=== PATIENT | female | born 1960 | race Caucasian/White ===

== ENCOUNTER 2017-05-09 09:24 | Inpatient (IN) | payer BC ==
[2017-04-18 13:59] VITALS: BMI 35.0
--- NOTE | 2017-04-18 14:26 | PAT Medication Instructions ---
Service Date Apr 18, 2017. Current Home Medication List [Detrol], 1 TAB PO QPM Medication Instructions For Your Scheduled Surgery - Take the following medications as scheduled the night before surgery: [Detrol], 1 TAB PO QPM If you have any questions please call us at [phone] or [phone] or [phone]
--- NOTE | 2017-04-18 15:07 | DIAGNOSTIC IMAGING REPORT ---
CHEST 2 VIEWS ROUTINE CLINICAL HISTORY: 56 years-old Female presenting with preoperative assessment. TECHNIQUE: PA and lateral views of the chest were obtained. COMPARISON: None. FINDINGS: Cardiomediastinal silhouette normal. Lungs and pleural spaces clear. Osseous structures normal. Upper abdomen normal. IMPRESSION: 1. No acute cardiopulmonary disease. Electronically signed by: Edis August M.D. 04/18/2017 3:05 PM Dictated Date/Time: 04/18/2017 3:05 PM
[2017-04-18 15:30] LABS: BASO % 0.5 %; BASO ABS # 0.02 K/uL (0-0.2); EOS % 2.3 %; HEMATOCRIT 41.4 % (37-47); HEMOGLOBIN 14.1 g/dL (12.0-16.0); LYMPH % 36.5 %; LYMPH ABS # 1.58 K/uL (1.2-3.4); MEAN CELL VOLUME 92.4 fL (80-100); MEAN CORPUSCULAR HEMOGLOBIN 31.5 pg (25-34); MEAN CORPUSCULAR HGB CONC 34.1 g/dl (32-36); MEAN PLATELET VOLUME 9.1 fL (7.4-10.4); MONO % 6.7 %; MONO ABS # 0.29 K/uL (0.11-0.59); NEUT ABS # 2.34 K/uL (1.4-6.5); PLATELET COUNT 244 K/uL (130-400); RED CELL DISTRIBUTION WIDTH CV 12.6 % (11.5-14.5); RED CELL DISTRIBUTION WIDTH SD 42.7 fL (36.4-46.3); WHITE BLOOD COUNT 4.33 K/uL (4.8-10.8)
[2017-04-18 15:39] LABS: INR 0.9 (0.9-1.1); PTT PATIENT 27.5 SECONDS (21.0-31.0)
[2017-04-19 06:40] LABS: HEMOGLOBIN A1C 5.3 % (4.5-5.6)
--- NOTE | 2017-05-02 16:52 | HISTORY & PHYSICAL EXAMINATION ---
DATE OF ADMISSION: 05/09/2017 CHIEF COMPLAINT: Right knee pain. HISTORY OF PRESENT ILLNESS: Debby is a 56-year-old female with an 8-year history of right knee pain. The patient rates her pain at 6/10. She has pain with her daily activities. She has limited standing and walking tolerance. Pain is worse with weightbearing. The patient has had injections, home exercise program, and NSAIDS over the years without relief. She has failed conservative treatment and is now scheduled to proceed with right knee replacement. PAST MEDICAL HISTORY: Hypercholesterolemia. She denies heart disease, diabetes or DVT. PAST SURGICAL HISTORY: Bilateral CMC replacement, inguinal hernia repair, tonsillectomy and wisdom teeth extraction. SOCIAL HISTORY: The patient drinks 10 drinks per month. She denies tobacco use. She lives in a 2-story home with her and currently works as a ceo & co founder. FAMILY HISTORY: Negative for DVT. MEDICATIONS: Oxybutynin 10 mg. ALLERGIES: QUESTIONABLE LATEX, otherwise no drug allergies. REVIEW OF SYSTEMS: See HPI. Ten other systems reviewed, all negative. PHYSICAL EXAMINATION: VITAL SIGNS: Height 4 feet 11 inches, weight 176 pounds, and BMI 36. GENERAL: This is a well-developed and well-nourished female, who is alert and oriented x3. Mood and affect are appropriate. HEENT: Normocephalic and atraumatic. Mucous membranes are moist and intact. NECK: Supple without lymphadenopathy. HEART: Regular rate and rhythm without murmurs, rubs or gallops. LUNGS: Clear to auscultation without wheezes or rhonchi. ABDOMEN: Soft and nontender. Bowel sounds are equal and active. EXTREMITIES: No ecchymosis, redness or warmth. She has varus deformity. Range of motion is from 5-110 degrees with +1 laxity. She is neurovascularly intact. X-RAY EXAMINATION: AP and lateral views show joint space narrowing and osteophyte formation. IMPRESSION: Degenerative joint disease, right knee. PLAN: The patient will be admitted for a right total knee arthroplasty. We will plan on aspirin for DVT prophylaxis. The patient will do outpatient physical therapy upon discharge.
[~2017-05-09] VITALS: Ht 149.9 cm; Wt 76.0 kg
[2017-05-09] VITALS (8 sets, daily range): BP systolic 91–140; BP diastolic 67–91; PULSE 71–93; TEMP 36.4–36.8; O2SAT 96–100; Ht 149.9 cm; Wt 76.0 kg
[2017-05-09] MEDS: TRANEXAMIC ACID INJ 1,000 MG x 2 Bags IV SCH ×4 (06:30→11:15)
[~2017-05-09 09:24] MED LIST: ACETAMINOPHEN 500 MG TAB PO SCH; ATROPINE SULFATE 0.1 MG/ML 5ML SYR IV PRN; BUPIVACAINE 0.25% 30 ML VIAL ONE; BUPIVACAINE 0.5 % 5 MG/1 ML PF 10ML VIAL ONE; CEFAZOLIN 1000MG IV PUSH 7.5 ML IV SCH; CeleBREX 200 MG CAP PO SCH; DETROL PO; DEXAMETHASONE 4 MG TAB PO SCH; EpHEDrine SULFATE INJ 50 MG/ML AMP IV PRN; FAMOTIDINE 20 MG TAB PO SCH; FENTANYL CITRATE INJ 50 MCG/1 ML 2 ML VIAL IV PRN; GABAPENTIN 600 MG PO SCH; LACTATED RINGER'S 1000ML 1,000 ML IV SCH; LACTATED RINGER'S 1000ML 500 ML IV SCH; METOCLOPRAMIDE HCL 10 MG TAB PO SCH; ONDANSETRON INJ 2 MG/ML 2 ML VIAL IV PRN; ROPIVACAINE 5MG/ML 30 ML 150 MG, BUPIVACAINE 0.5% MPF INJ 30 ML, EpINEphrine HCL INJ 0.... INFIL SCH
--- NOTE | 2017-05-09 10:31 | History & Physical Bridge Note ---
H&P Re-Evaluation Bridge Note: I have examined the patient, reviewed the History & Physical and in the interval since the performance of the History & Physical I have noted the following changes of clinical significance: No changes noted
[2017-05-09] MEDS ORDERED: MIDAZOLAM HCL 1 MG/ML 2ML VIAL ONE ×2 (10:37→11:46)
[2017-05-09] MEDS ORDERED: ORTHO JOINT ANESTHETIC ONE (11:13)
[2017-05-09] MEDS ORDERED: POVIDONE-IODINE OP SOLN 30 ML BTL ONE (11:13)
[2017-05-09] MEDS ORDERED: BACITRACIN 50000 UNIT VIAL ONE (11:13)
--- NOTE | 2017-05-09 12:48 | [facility] Operative Report ---
Operative Report Operative Date May 09, 2017. Pre-Operative Diagnosis Degenerative joint disease, right knee Post-Operative Diagnosis Degenerative joint disease, right knee Procedure(s) Performed Right Total Knee Arthroplasty Cemented utilizing patient matched journey to right total knee arthroplasty size 4 femur 3 tibia 9.[address] Dre Gomez Sod Farmer Surgeon(s) Jer Ayala PA-C Estimated Blood Loss 5cc Findings Patient presents for her end-stage tract or mild degenerative joint disease no response to conservative therapy varus alignment bone the bone changes subchondral cystic changes marginal osteophytes no response to conservative management Specimens As Per Surgeon A. Right Knee Bone and Tissue Anesthesia Type MAC Spinal Regional Complication(s) none Disposition Recovery Room / PACU Indications Patient presents with severe end-stage rectum or mild degenerative joint disease no response to conservative therapy including physical therapy anti- inflammatories relative rest activity modification plans for total knee orthoplasty postoperative pain as DVT prophylaxis Description of Procedure After proper prepping and draping of the Right lower extremity anterior midline incision was made over the region of the extensor extensor mechanism after meticulous hemostasis was obtained and maintained in subcutaneous tissues a medial parapatellar incision was made The patella was subluxed lateralward the medial lateral gutter were cleaned from any hypertrophic synovitis and scar tissue of the distal femoral block was placed and the distal femoral osteotomy cut was made subsequently the chamfers anterior and posterior osteotomy cuts were made utilizing the 4-in-1 block the tibia was subsequently subluxed anteriorward medial and ateral meniscal remnants were excised in their entirety remnants of the anterior and posterior cruciate ligaments were excised in their entirety excellent exposure of the proximal tibia was obtained the tibial osteotomy guide was placed on the proximal tibial osteotomy cut was made once again the knee was irrigated with copious amounts of sterile saline solution the patella was subsequently everted lateralward thickened scar tissue around the patella was removed the patella was subsequently cut utilizing a freehand technique and was drilled prepared for final preparation and placement of patella socially flexion-extension gaps were checked and the equal and symmetric trials were placed to the appropriate femoral and tibial trials with poly-spacer being placed for equal flexion and extension gaps and full range of motion including extension to 0 and flexion to 140 the trial components after having been taken to recovery range of motion was subsequently removed meticulous hemostasis was obtained and maintained subsequently a knee block injection of joint cocktail including ropivacaine 0.5% 150 mg. Bupivacaine 0.5 % epinephrine 1-200,030 mL's toradol 30 mg dexamethasone 4 mg ketamine 10 mg clonidine 100 micrograms normal saline solution 30 mg was infiltrated into the soft tissues of the posterior knee medial lateral gutters and periosteal synovium special attention was paid to protect neurovascular structures at all times subsequently trial components having been removed the knee was irrigated with sterile saline solution. debris was removed the proximal tibia was subsequently prepared and was made ready for the placement of the tibial component tibial component was also cemented and tamped into position the femoral component was subsequently placed and cemented in the position the patellar component was subsequently cemented in position because hemostasis once again obtained and maintained wound having been thoroughly irrigated with debridement and debridement lavage was performed as well as a medial parapatellar incision closed with #1 Vicryl in interrupted fashion subcutaneous was closed with #2 Vicryl skin was closed with skin clips. PA-C was necessary for prepping and drapping as well as wound closure of deep fascia Sub cutaneous tissue and skin and was necessary for the case. A sterile compressive dressing was placed patient was taken to recovery in stable condition of report dictated by Jason I attest to the content of the Intraoperative Record and any orders documented therein. Any exceptions are noted below. I attest to the content of the Intraoperative Record and any orders documented therein. Any exceptions are noted below.
[2017-05-09] MEDS ORDERED: PROPOFOL IV EMULSION 10 MG/ML 20 ML VIAL IV ONE (12:59)
[2017-05-09] MEDS ORDERED: LIDOCAINE HCL 2% 2 ML VIAL (20MG/ML) ONE (12:59)
[2017-05-09] MEDS ORDERED: ALUMINUM/MAGNESIUM/SIMETH (MAALOX MAX) 30 ML UDC PO PRN (13:30)
[2017-05-09] MEDS ORDERED: OXYCODONE HCL IR 5 MG TAB (IMMEDIATE RELEASE) PO PRN (13:30)
[2017-05-09] MEDS ORDERED: ONDANSETRON INJ 2 MG/ML 2 ML VIAL IV PRN (13:30)
[2017-05-09] MEDS ORDERED: BISACODYL 10 MG SUPP PR PRN (13:30)
[2017-05-09] MEDS ORDERED: ZOLPIDEM TARTRATE 5 MG TAB PO PRN (13:30)
[2017-05-09] MEDS ORDERED: MAGNESIUM HYDROXIDE SUSP 30 ML UDC PO PRN (13:30)
[2017-05-09] MEDS ORDERED: SOD PHOSPHATE/SOD BIPHOSPHATE ENEMA 132 ML BTL PR PRN (13:30)
[2017-05-09] MEDS ORDERED: MoRPHine SULFATE 2 MG/ML CARP IV PRN ×2 (13:30→13:45)
[2017-05-09] MEDS ORDERED: KETOROLAC TROMETHAMINE 30 MG/ML VIAL IV. PRN (13:30)
[2017-05-09] MEDS ORDERED: MoRPHine SULFATE 4 MG/ML 1 ML CARP\\VIAL IV PRN (13:45)
[2017-05-09] MEDS ORDERED: MoRPHine SULFATE 10 MG/ML CARP/VIAL IV PRN (13:45)
--- NOTE | 2017-05-09 14:01 | DIAGNOSTIC IMAGING REPORT ---
R KNEE 2 VIEWS ROUTINE CLINICAL HISTORY: Postop knee arthroplasty COMPARISON: None. DISCUSSION: There are postsurgical changes of a total right knee arthroplasty and patellar resurfacing. The femoral and tibial components appear well seated. There is aortic the soft tissues consistent with recent surgery. There are overlying surgical drains. IMPRESSION: Postsurgical changes of a total right knee arthroplasty. Electronically signed by: Juan Weston M.D. 05/09/2017 1:59 PM Dictated Date/Time: 05/09/2017 1:59 PM
--- NOTE | 2017-05-09 14:08 | Anesthesiology Progress Note ---
Anesthesia Post Op Note Date & Time May 09, 2017 at 14:08 Vital Signs Pain Intensity: 0 Vital Signs Past 12 Hours Date Time Temp Pulse Resp B/P (MAP) Pulse Ox O2 Delivery O2 Flow Rate FiO2 05/09/17 14:00 65 16 111/72 100 Nasal Cannula 3 05/09/17 13:50 72 14 108/68 100 Oxymask 3 05/09/17 13:40 71 14 109/78 100 Oxymask 3 05/09/17 13:30 74 14 103/74 100 Oxymask 3 05/09/17 13:21 36.3 90 16 119/75 99 Oxymask 5 05/09/17 09:52 36.4 93 16 140/91 100 Room Air Notes Mental Status: alert / awake / arousable, participated in evaluation Pt Amnestic to Procedure: Yes Nausea / Vomiting: adequately controlled Pain: adequately controlled Airway Patency, RR, SpO2: stable & adequate BP & HR: stable & adequate Hydration State: stable & adequate Neuraxial Anesthesia: was administered, sensory block is resolving Anesthetic Complications: no major complications apparent
[2017-05-09 15:30] LABS: CREATININE 0.64 mg/dl (0.60-1.20)
[2017-05-09] MEDS: D5W AND 1/2NSS + 20MEQ KCL 1,000 ML IV SCH (18:35)
[2017-05-09] MEDS: CEFAZOLIN IV 1,000 MG in SYRINGE 0 ML IV SCH (19:40)
[2017-05-09] MEDS: ACETAMINOPHEN 500 MG TAB PO SCH (20:48)
[2017-05-09] MEDS: ASPIRIN 81 MG ECTAB PO SCH (20:48)
[2017-05-09] MEDS: DOCUSATE SODIUM 100 MG CAP PO SCH (20:48)
[2017-05-09] MEDS ORDERED: SENNA 8.6 MG TAB PO SCH (21:00)
[2017-05-10] MEDS: TRAMADOL HCL 50 MG TAB PO PRN ×2 (00:18→09:29)
[2017-05-10 02:47] VITALS: BP 103/67; PULSE 72; TEMP 36.5; O2SAT 97
[2017-05-10] MEDS: D5W AND 1/2NSS + 20MEQ KCL 1,000 ML IV SCH (03:53)
[2017-05-10] MEDS: CEFAZOLIN IV 1,000 MG in SYRINGE 0 ML IV SCH (03:53)
[2017-05-10] MEDS: ACETAMINOPHEN 500 MG TAB PO SCH ×2 (05:44→14:10)
[2017-05-10 05:59] LABS: HEMATOCRIT 34.2 % (37-47); HEMOGLOBIN 11.9 g/dL (12.0-16.0); MEAN CELL VOLUME 90.2 fL (80-100); MEAN CORPUSCULAR HEMOGLOBIN 31.4 pg (25-34); MEAN CORPUSCULAR HGB CONC 34.8 g/dl (32-36); MEAN PLATELET VOLUME 8.9 fL (7.4-10.4); PLATELET COUNT 238 K/uL (130-400); RED CELL DISTRIBUTION WIDTH CV 12.7 % (11.5-14.5); RED CELL DISTRIBUTION WIDTH SD 41.6 fL (36.4-46.3); WHITE BLOOD COUNT 11.15 K/uL (4.8-10.8)
[2017-05-10 06:23] LABS: CALCIUM 8.6 mg/dl (8.5-10.1); CREATININE 0.64 mg/dl (0.60-1.20); POTASSIUM 3.7 mmol/L (3.5-5.1)
[2017-05-10 07:15] VITALS: BP 108/74; PULSE 73; TEMP 36.6; O2SAT 97
--- NOTE | 2017-05-10 08:19 | Orthopedic Progress Note ---
Orthopedic Progress Note Date of Service May 10, 2017. Subjective Post OP Day: 1 Reports: feeling well, pain controlled w PO medications, Denies: complaints, chest pain, SOB, nausea / vomiting, light headedness, calf pain Objective calves soft nontender, N/V intact, capillary refill less than 2 sec., dressing C /D/I, A&O x3, toes mobile, hemovac drainage (100cc/8 hours) Date Time Temp Pulse Resp B/P (MAP) Pulse Ox O2 Delivery O2 Flow Rate FiO2 05/10/17 07:15 36.6 73 16 108/74 (85) 97 Room Air 05/10/17 07:15 Room Air 05/10/17 02:47 36.5 72 16 103/67 (79) 97 Room Air 05/10/17 00:20 Room Air 05/09/17 23:32 36.8 82 16 121/78 (92) 96 Room Air 05/09/17 17:34 36.5 71 18 103/69 (80) 99 Nasal Cannula 2.0 05/09/17 15:25 36.5 73 18 91/67 (75) 99 Nasal Cannula 1.0 05/09/17 15:10 99 Nasal Cannula 1.0 05/09/17 14:55 36.4 81 18 101/68 (79) 99 Nasal Cannula 1.0 05/09/17 14:27 100 Nasal Cannula 2.0 05/09/17 14:25 100 Nasal Cannula 2.0 05/09/17 14:23 36.5 76 14 105/71 (82) 100 Nasal Cannula 2.0 05/09/17 14:10 36.2 66 16 106/66 100 Nasal Cannula 3 05/09/17 14:00 65 16 111/72 100 Nasal Cannula 3 05/09/17 13:50 72 14 108/68 100 Oxymask 3 05/09/17 13:40 71 14 109/78 100 Oxymask 3 05/09/17 13:30 74 14 103/74 100 Oxymask 3 05/09/17 13:21 36.3 90 16 119/75 99 Oxymask 5 05/09/17 09:52 36.4 93 16 140/91 100 Room Air Laboratory Results 24 Hours: Test 05/10/17 05:41 Hematocrit 34.2 % Hemoglobin 11.9 g/dL Prothromb Time International Ratio 1.0 Prothrombin Time 10.4 SECONDS Assessment & Plan Assessment: POD #1 s/p right TKA pt/ot dvt proph with cindy/scd/asa plan for dc later today, will leave drain in until after PT Discharge Planning Discharge Planning: home with oppt DVT Prophylaxis: TEDs, SCDs, ASA Therapy: Physical Therapy
--- NOTE | 2017-05-10 08:21 | Discharge Instructions ---
Discharge Instructions Date of Service May 10, 2017. Admission Reason for Admission: Right Knee Osteoarthritis Discharge Discharge Diagnosis / Problem: right total knee replacement Discharge Goals Goal(s): Decrease discomfort, Improve function, Increase independence Activity Recommendations Activity Limitations: as noted below Weightbearing Status: Right weightbearing (as tolerated) . Instructions / Follow-Up Instructions / Follow-Up ACTIVITY RECOMMENDATIONS: SELF CARE INSTRUCTIONS AFTER TOTAL KNEE REPLACEMENT A. You may need to continue a physical therapy program after discharge from the hospital. There are several options available to you. Your doctor will assist you in selecting the best one for you. 1. An out-patient facility 2 to 3 times a week for therapy or home therapy. 2. Continue working on all exercises taught to you in the hospital. Your goals should be to increase bending of your knee to 90 degrees and beyond and to fully straighten your knee. B. You may progress at your own pace from walking with a walker or crutches to a cane; then to no assistive devices. C. Make walking a part of your daily routine. Be up as much as comfortable with rest periods throughout the day. Rest with leg elevation is very important. Use the ice wrap frequently for the first 3-4 weeks. D. There are no restrictions on activities. You may ride in a car, shop, participate in automotive mechanical engineer and all social activities. E. Wear the long elastic stockings (KIMBERLEY hose) 20 hours a day for 2 weeks after surgery. They can be removed several times a day for laundering and for a bath. F. You may shower, no tub baths until cleared by your doctor. SPECIAL CARE INSTRUCTIONS: VERY IMPORTANT TO READ AND REVIEW A. There are a few signs you need to watch for after you are home. Call [facility] [place] if you notice any of the followin. Increased severe knee pain. Some pain is expected especially when you exercise. 2. Increased swelling in your leg or knee; pain or swelling of the calf muscle in either lower leg. 3. Any fluid drainage from the incision. 4. Shortness of breath or chest pain. B. Please call [facility] at if you have any concerns or questions about your operation or recovery. The doctor or his nurse will return your call promptly. C. You must take antibiotics before dental work, bladder, bowel or other surgery. Your doctor will provide you with a permanent care to carry describing this precaution. IMPORTANT: * REMEMBER TO TAKE ASPIRIN, 81 MG, TWICE DAILY FOR 4 WEEKS UNLESS OTHERWISE DIRECTED. THIS IS YOUR BLOOD THINNER. * HIGH RISK PATIENTS MAY BE PRESCRIBED A STRONGER BLOOD THINNER. THIS WILL BE PROVIDED AT DISCHARGE. * CALL IF INCREASED PAIN, REDNESS, DRAINAGE OR FEVER GREATER THAT 101. * WEAR KIMBERLEY HOSE 20 HOURS PER DAY FOR 2 WEEKS. * DERMABOND Prineo- This is a mesh tape dressing that is covered with glue. It should remain in place until the incision is properly healed, usually 10-14 days. This dressing is designed to naturally slough off. You may trim the excess mesh tape as it peels off. Incision may be briefly wet in a shower. Dry immediately by blotting with a clean, dry towel. Do not bath or swim until instructed by your doctor. Do not scratch, rub, or pick at the dressing. Do not apply any topical ointments or lotions until dressing is completely removed and/or instructed by your doctor. There may be a small piece of suture material at one end of your incision. Do not pull or trim this. If it is bothersome or catching on clothing, you may cover it with a band-aid. FOLLOW UP VISIT: If appointment is not already scheduled: Please call [facility] [place] to make a follow-up appointment for 2 weeks after your surgery at . Current Hospital Diet Patient's current hospital diet: Regular Diet Discharge Diet Recommended Diet: Regular Diet Procedures Procedures Performed: Right Total Knee Arthroplasty Cemented utilizing patient matched journey to right total knee arthroplasty size 4 femur 3 tibia 9.32 oval patella Pending Studies Studies pending at discharge: no Laboratory Results Hemoglobin A1c Test 04/18/17 14:34 Range/Units Estimated Average Glucose 105 mg/dl Hemoglobin A1c 5.3 4.5-5.6 % Medical Emergencies . Who to Call and When: Medical Emergencies: If at any time you feel your situation is an emergency, please call 911 immediately. . Non-Emergent Contact Non-Emergency issues call your: Primary Care Provider, Surgeon . "Provider Documentation" section prepared by Jer Ayala. . [place] Drug Monitoring Program Search Results: patient reviewed within database, no issues identified
[2017-05-10] MEDS ORDERED: CLB200 PO (08:22)
[2017-05-10] MEDS ORDERED: RXC5 PO (08:22)
[2017-05-10] MEDS ORDERED: ACET-24 PO (08:22)
[2017-05-10] MEDS ORDERED: ASPEC81 PO (08:22)
[2017-05-10] MEDS ORDERED: ONDA-170 PO (08:22)
[2017-05-10] MEDS ORDERED: CLC100 PO (08:22)
[2017-05-10] MEDS ORDERED: PANTOprazole SOD 40 MG TAB PO SCH (09:00)
[2017-05-10] MEDS ORDERED: MULTIVITAMIN TAB PO SCH (09:00)
[2017-05-10] MEDS: ASPIRIN 81 MG ECTAB PO SCH (09:25)
[2017-05-10] MEDS: DOCUSATE SODIUM 100 MG CAP PO SCH (09:25)
[2017-05-10 10:35] VITALS: BP 108/74; PULSE 73; TEMP 36.6; O2SAT 97
[2017-05-10] MEDS ORDERED: CeleBREX 200 MG CAP PO SCH (21:00)
--- NOTE | 2017-05-11 14:32 | Discharge Summary ---
Orthopedic Discharge Summary Admission Date/Reason May 09, 2017 at 10:35 Right Knee Osteoarthritis. Discharge Date/Disposition May 10, 2017 Home Diagnosis Principal Diagnosis: right knee osteoarthritis Procedure(s) Performed Right Total Knee Arthroplasty Cemented utilizing patient matched journey to right total knee arthroplasty size 4 femur 3 tibia 9.32 oval patella Consultations NONE Medication Reconciliation New Medications: Ondansetron Hcl (Zofran) 8 Mg Tab 8 MG PO Q8 PRN for Nausea, #20 TAB Acetaminophen (Sb Non-Aspirin Extra Stre) 500 Mg Tab 1000 MG PO Q8H, #63 TAB Aspirin (Aspirin EC Low Dose) 81 Mg Ectab 81 MG PO BID for 30 Days, #60 TAB Celecoxib (Celebrex) 200 Mg Cap 200 MG PO BID for 30 Days, #60 CAP Docusate Sodium (Docusate Sodium) 100 Mg Cap 100 MG PO BID for 10 Days, #20 CAP Oxycodone HCl (Oxycodone HCl) 5 Mg Tab 5-10 MG PO Q4H PRN for Pain, #60 TAB Continued Medications: [Detrol] () 1 TAB PO QPM Admission Physical Exam As per Admitting History & Physical. Hospital Course Patient was a same day admission after undergoing a successful right TKA. She tolerated the procedure well. Post-operatively, her activity was progressed and well tolerated. Please refer to daily progress notes and PT notes for complete details. After exam on 05/10/17, patient felt to be stable for discharge home with OPPT. Patient will f/u in the office in 2 weeks for further evaluation including x-rays and incision check, sooner if having any issues or concerns. Below are pertinent labs/studies during their hospital stay: Last Vital Signs Documentation Date Time Temp Pulse Resp B/P (MAP) Pulse Ox O2 Delivery O2 Flow Rate FiO2 05/10/17 10:35 36.6 73 16 97 Room Air 05/10/17 07:15 108/74 (85) 05/09/17 17:34 2.0 Last Resulted CBC 05/10/17 05:41 Last Resulted BMP 05/10/17 05:41 Discharge Instructions ACTIVITY RECOMMENDATIONS: SELF CARE INSTRUCTIONS AFTER TOTAL KNEE REPLACEMENT A. You may need to continue a physical therapy program after discharge from the hospital. There are several options available to you. Your doctor will assist you in selecting the best one for you. 1. An out-patient facility 2 to 3 times a week for therapy or home therapy. 2. Continue working on all exercises taught to you in the hospital. Your goals should be to increase bending of your knee to 90 degrees and beyond and to fully straighten your knee. B. You may progress at your own pace from walking with a walker or crutches to a cane; then to no assistive devices. C. Make walking a part of your daily routine. Be up as much as comfortable with rest periods throughout the day. Rest with leg elevation is very important. Use the ice wrap frequently for the first 3-4 weeks. D. There are no restrictions on activities. You may ride in a car, shop, participate in pet counselor and all social activities. E. Wear the long elastic stockings (KIMBERLEY hose) 20 hours a day for 2 weeks after surgery. They can be removed several times a day for laundering and for a bath. F. You may shower, no tub baths until cleared by your doctor. SPECIAL CARE INSTRUCTIONS: VERY IMPORTANT TO READ AND REVIEW A. There are a few signs you need to watch for after you are home. Call [facility] [place] if you notice any of the followin. Increased severe knee pain. Some pain is expected especially when you exercise. 2. Increased swelling in your leg or knee; pain or swelling of the calf muscle in either lower leg. 3. Any fluid drainage from the incision. 4. Shortness of breath or chest pain. B. Please call [facility] at if you have any concerns or questions about your operation or recovery. The doctor or his nurse will return your call promptly. C. You must take antibiotics before dental work, bladder, bowel or other surgery. Your doctor will provide you with a permanent care to carry describing this precaution. IMPORTANT: * REMEMBER TO TAKE ASPIRIN, 81 MG, TWICE DAILY FOR 4 WEEKS UNLESS OTHERWISE DIRECTED. THIS IS YOUR BLOOD THINNER. * HIGH RISK PATIENTS MAY BE PRESCRIBED A STRONGER BLOOD THINNER. THIS WILL BE PROVIDED AT DISCHARGE. * CALL IF INCREASED PAIN, REDNESS, DRAINAGE OR FEVER GREATER THAT 101. * WEAR KIMBERLEY HOSE 20 HOURS PER DAY FOR 2 WEEKS. * DERMABOND Prineo- This is a mesh tape dressing that is covered with glue. It should remain in place until the incision is properly healed, usually 10-14 days. This dressing is designed to naturally slough off. You may trim the excess mesh tape as it peels off. Incision may be briefly wet in a shower. Dry immediately by blotting with a clean, dry towel. Do not bath or swim until instructed by your doctor. Do not scratch, rub, or pick at the dressing. Do not apply any topical ointments or lotions until dressing is completely removed and/or instructed by your doctor. There may be a small piece of suture material at one end of your incision. Do not pull or trim this. If it is bothersome or catching on clothing, you may cover it with a band-aid. FOLLOW UP VISIT: If appointment is not already scheduled: Please call [facility] to make a follow-up appointment for 2 weeks after your surgery at .
== END 2017-05-10 14:20 | disposition home or self-care (01) | DRG 470 ==
LOC: C.ACU 09:24 → C.3E 10:35 → ENRESERV 13:54
PROVIDERS: ADMIT Orthopaedic Surgery; ATTEND Orthopaedic Surgery
PROC: 0SRC0J9 Replacement of Right Knee Joint with Synthetic Substitute, Cemented, Open Approach (ICD-10-PCS; principal; 2017-05-09 12:00)
DX: M17.11 Unilateral primary osteoarthritis, right knee (principal); E66.9 Obesity, unspecified; Z68.34 Body mass index [BMI] 34.0-34.9, adult; Z79.899 Other long term (current) drug therapy; Z91.040 Latex allergy status; Z98.890 Other specified postprocedural states

== ENCOUNTER 2019-08-06 06:11 | Inpatient (IN) ==
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
--- NOTE | 2019-07-30 14:41 | XRay Report ---
XR chest Pre-admission PA/Lat CLINICAL HISTORY: Preoperative chest COMPARISON STUDY: March 2017 FINDINGS: The cardiac and mediastinal contours are normal. There is no evidence of focal pulmonary co nsolidation. There is no evidence of failure. No pleural effusions are visualized.[ IMPRESSION: No active disease in the chest. ACT 112: Negative or not required by law. Electronically signed by: Juan Weston M.D. 07/30/2019 2:39 PM
[2019-07-30 16:03] LABS: Basophils # (auto) 0.02 K/uL (0-0.2); Basophils % (auto) 0.6 %; Eosinophils # (auto) 0.09 K/uL (0-0.5); Eosinophils % (auto) 2.7 %; Hematocrit (blood only) 45.1 % (37-47); Hemoglobin 15.2 g/dL (12.0-16.0); Lymphocytes # (auto) 1.17 K/uL (1.2-3.4); Lymphocytes % (auto) 35.3 %; Mean Corpuscular Hemoglobin 31.3 pg (25-34); Mean Corpuscular Hgb Conc 33.7 g/dL (32-36); Monocytes # (auto) 0.25 K/uL (0.11-0.59); Monocytes % (auto) 7.6 %; Neutrophils # (auto) 1.78 K/uL (1.4-6.5); Neutrophils % (auto) 53.8 %; Platelet Count 226 K/uL (130-400); RDW Standard Deviation 44.3 fL (36.4-46.3); Red Blood Count 4.85 M/uL (4.2-5.4); White Blood Count 3.31 K/uL (4.8-10.8)
[2019-07-30 16:10] LABS: Calcium 9.8 mg/dl (8.5-10.1); Creatinine Clr Calc Pharmacy 65.8 ml/min; Est GFR (African American) 92.8; Est GFR (Non-African American) 80.1; Potassium 4.5 mmol/L (3.5-5.1)
[2019-07-30 16:13] LABS: Appearance Urine Clear (Clear); Bilirubin Urine Negative (Negative); Blood Urine Negative (Negative); Color Urine Yellow; Glucose Urine UA Negative (Negative); Ketones Urine 2+ (Negative); Leukocyte Esterase Urine Negative (Negative); Nitrite Urine Negative (Negative); Protein Urine Negative (Negative); Specific Gravity Urine 1.009 (1.000-1.030); Urobilinogen Urine Negative (Negative)
[2019-07-30 16:14] LABS: Partial Thromboplastin Ratio 1.1; Partial Thromboplastin Time 31.8 Seconds (21.0-31.0); Prothrombin Time 10.7 Seconds (9.0-12.0)
--- NOTE | 2019-07-31 06:05 | Electrocardiogram Report ---
Test Reason : Blood Pressure : / mmHG Vent. Rate : 074 BPM Atrial Rate : 074 BPM P-R Int : 124 ms QRS Dur : 130 ms QT Int : 426 ms P-R-T Axes : 054 097 039 degrees QTc Int : 472 ms Normal sinus rhythm Right bundle branch block Cannot rule out Inferior infarct , age undetermined Abnormal ECG When compared with ECG of 18-APR-2017 14:38, No significant change was found Confirmed by John Chappell ([id number]) on 07/31/2019 6:04:37 AM Referred By: Dre Gomez Confirmed By:John Chappell
[2019-07-31 06:07] LABS: Estimated Average Glucose 103 mg/dl; Hemoglobin A1C 5.2 % (4.5-5.6)
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
[~2019-08-06 06:11] MED LIST changes: -ATROPINE SULFATE 0.1 MG/ML 5ML SYR IV PRN; -BUPIVACAINE 0.25% 30 ML VIAL ONE; -BUPIVACAINE 0.5 % 5 MG/1 ML PF 10ML VIAL ONE; +BUPIVACAINE LIPOSOME/PF 266 MG, BUPIVACAINE/EPINEPHRINE 50 ML, SODIUM CHLORIDE 0.9% 30 ... INFIL SCH; -CEFAZOLIN 1000MG IV PUSH 7.5 ML IV SCH; +CEFAZOLIN 2000MG 2,000 MG/15 ML SYR IV SCH; -CeleBREX 200 MG CAP PO SCH; -DETROL PO; -DEXAMETHASONE 4 MG TAB PO SCH; -EpHEDrine SULFATE INJ 50 MG/ML AMP IV PRN; -FENTANYL CITRATE INJ 50 MCG/1 ML 2 ML VIAL IV PRN; +GABAPENTIN 600 MG DOSE PO SCH; -GABAPENTIN 600 MG PO SCH; -LACTATED RINGER'S 1000ML 1,000 ML IV SCH; -LACTATED RINGER'S 1000ML 500 ML IV SCH; +LR 500ML BOLUS, THEN 15ML/HR IV SCH; -METOCLOPRAMIDE HCL 10 MG TAB PO SCH; +METOCLOPRAMIDE HCL 10 MG TABLET PO SCH; -ONDANSETRON INJ 2 MG/ML 2 ML VIAL IV PRN; +OXYCODONE HCL 10 MG TABCR (OXYCONTIN) PO SCH; +ROPIVACAINE 0.5% HCL/PF 150 MG, BUPIVACAINE 0.5% MPF 30 ML, EPINEPHrine 30MG/30ML (OR U... INSTIL SCH; -ROPIVACAINE 5MG/ML 30 ML 150 MG, BUPIVACAINE 0.5% MPF INJ 30 ML, EpINEphrine HCL INJ 0.... INFIL SCH; +TRANEXAMIC ACID 1,000 MG **IV Intra-op IV SCH; +TRANEXAMIC ACID 1,000 MG **IV Pre-op IV SCH
[2019-08-06] MEDS ORDERED: ROPIVACAINE 0.5% 5 MG/ML 30 ML VIAL ONE (06:35)
[2019-08-06] MEDS ORDERED: BUPIVACAINE 0.5 % 5 MG/1 ML PF 10ML VIAL ONE (06:35)
[2019-08-06] MEDS ORDERED: MIDAZOLAM HCL 1 MG/ML 2ML VIAL ONE ×2 (06:44)
[2019-08-06] MEDS ORDERED: fentaNYL citrate 100 MCG/2 ML VIAL ONE (06:44)
[2019-08-06] MEDS ORDERED: LIDOCAINE HCL 2% 2 ML VIAL/AMP(20MG/ML) INFIL ONE (06:55)
[2019-08-06] MEDS ORDERED: PROPOFOL IV EMULSION 10 MG/ML 20 ML VIAL IV ONE (06:55)
[2019-08-06] MEDS ORDERED: ONDANSETRON INJ 2 MG/ML 2 ML VIAL ONE (06:55)
[2019-08-06] MEDS ORDERED: ORTHO JOINT ANESTHETIC ONE (07:02)
[2019-08-06] MEDS ORDERED: BACITRACIN INJ 50,000 UNIT VIAL ONE (07:03)
--- NOTE | 2019-08-06 07:07 | History & Physical Bridge Note ---
Date of Service August 06, 2019 History & Physical Bridge Note I have examined the patient, reviewed the History & Physical and in the interval since the performance of the History & Physical I have noted the following changes of clinical significance: no changes noted
[2019-08-06] MEDS ORDERED: ePHEDrine sulfate 50 MG/ML AMP IV PRN (07:56)
[2019-08-06] MEDS ORDERED: HYDROmorphone INJ 1 MG/ML SYRINGE IV PRN (07:56)
[2019-08-06] MEDS ORDERED: ATROPINE SULFATE 0.1 MG/ML 10ML SYR IV PRN (07:56)
[2019-08-06] MEDS ORDERED: ONDANSETRON INJ 2 MG/ML 2 ML VIAL IV PRN ×2 (07:56→11:36)
[2019-08-06] MEDS ORDERED: KETOROLAC 30 MG/ML VIAL IV PRN (07:56)
--- NOTE | 2019-08-06 09:46 | Operative Report ---
Post Operative Report Pre & Post Diagnosis Operation Date: 08/06/19 08:20 Pre-Op Diagnosis: Unilateral Primary Osteoarthritis, Left Knee Post-Op Diagnosis: Unilateral Primary Osteoarthritis, Left Knee I identified the patient and participated in the time-out.: Yes Procedure Operation Date: 08/06/19 08:20 Actual Procedures p Left Total Knee Arthroplasty(Left) utilizing [employer]en [employer] Nephew journey 2 patient matched total knee arthroplasty size 4 femur to tibia 9 polyethylene 32 oval patella- Dre Gomez DO Surgeon Dre Gomez DO Template Fitter Herbert CARTWRIGHT Estimated Blood Loss 10 Findings Consistent with Post-Op Diagnosis Patient presents with severe end-stage tricompartmental degenerative joint disease left knee no response to conservative management patient is failed attempts at injections patient is noted subchondral sclerosis marginal osteophytes cystic changes eburnated [id number] 10 degree flexion contracture with a moderate to large effusion Specimens Bone and cartilage Drains Medium bore Hemovac Anesthesia Type MAC Spinal Regional Complications none Disposition Accompanied Patient To Recovery: No Disposition: Recovery Room Indications Patient presents as a very pleasant 68-year-old white female with severe end- stage tricompartmental degenerative joint disease of left knee she presents for left total knee arthroplasty is failed attempted conservative management leading physical therapy anti-inflammatories relative rest activity modification corticosteroid injection patient regarding successful right total knee arthroplasty presents today for left total knee arthroplasty with the above findings noted Description of Procedure After proper prepping and draping of the left lower extremity anterior midline incision was made over the region of the extensor extensor mechanism after meticulous hemostasis was obtained and maintained in subcutaneous tissues a medial parapatellar incision was made The patella was subluxed lateralward the medial lateral gutter were cleaned from any hypertrophic synovitis and scar tissue of the distal femoral block was placed and the distal femoral osteotomy cut was made subsequently the chamfers anterior and posterior osteotomy cuts were made utilizing the 4-in-1 block the tibia was subsequently subluxed anterio rward medial and ateral meniscal remnants were excised in their entirety remnants of the anterior and posterior cruciate ligaments were excised in their entirety excellent exposure of the proximal tibia was obtained the tibial osteotomy guide was placed on the proximal tibial osteotomy cut was made once again the knee was irrigated with copious amounts of sterile saline solution the patella was subsequently everted lateralward thickened scar tissue around the patella was removed the patella was subsequently cut utilizing a freehand technique and was drilled prepared for final preparation and placement of patella socially flexion-extension gaps were checked and the equal and symmetric trials were placed to the appropriate femoral and tibial trials with poly-spacer being placed for equal flexion and extension gaps and full range of motion including extension to 0 and flexion to 140 the trial components after having been taken to recovery range of motion was subsequently removed meticulous hemostasis was obtained and maintained subsequently a knee block injection of joint cocktail including ropivacaine 0.5% 150 mg. Bupivacaine 0.5% epinephrine 1-200,030 mL's toradol 30 mg dexamethasone 4 mg ketamine 10 mg clonidine 100 micrograms normal saline solution 30 mg was infiltrated into the soft tissues of the posterior knee medial lateral gutters and periosteal synovium special attent ion was paid to protect neurovascular structures at all times subsequently trial components having been removed the knee was irrigated with sterile saline solution. debris was removed the proximal tibia was subsequently prepared and was made ready for the placement of the tibial component tibial component was also cemented and tamped into position the femoral component was subsequently placed and cemented in the position the patellar component was subsequently cemented in position because hemostasis once again obtained and maintained wound having been thoroughly irrigated with debridement and debridement lavage was performed as well as a medial parapatellar incision closed with #1 Vicryl in interrupted fashion subcutaneous was closed with #2 Vicryl skin was closed with skin clips. PA-C was necessary for prepping and drapping as well as wound closure of deep fascia Sub cutaneous tissue and skin and was necessary for the case. A sterile compressive dressing was placed patient was taken to recovery in stable condition of report dictated by Jason I attest to the content of the Intraoperative Record and any orders documented therein. Any exceptions are noted below. I attest to the content of the Intraoperative Record and any orders documented therein. Any exceptions are noted below.
--- NOTE | 2019-08-06 11:21 | XRay Report ---
XR knee LT 1 or 2V routine CLINICAL HISTORY: Surgical Post Op COMPARISON: None FINDINGS: Alignment of the total left knee arthroplasty is anatomic. There is no periprosthetic frac ture or unexpected radiopaque foreign body. Drains are in place. IMPRESSION: Expected findings following total left knee arthroplasty. ACT 112: Negative or not required by law. Electronically signed by: Mak Lopez M.D. 08/06/2019 11:20 AM
[2019-08-06] MEDS ORDERED: NALOXONE HCL 0.4 MG/1 ML VIAL/CARP IV PRN (11:36)
[2019-08-06] MEDS ORDERED: HYDROmorphone INJ 0.5 MG/0.5 ML SYR IV PRN (11:36)
[2019-08-06] MEDS ORDERED: MAGNESIUM HYDROXIDE SUSP 30 ML UDC PO PRN (11:36)
[2019-08-06] MEDS ORDERED: bisacodyL 10 MG SUPP PR PRN (11:36)
[2019-08-06] MEDS ORDERED: OXYCODONE HCL IR 5 MG TAB (IMMEDIATE RELEASE) PO PRN (11:36)
--- NOTE | 2019-08-06 11:56 | Anesthesiology Progress Note ---
Date of Service August 06, 2019 Anesthesia Post Procedure Vital Signs Vital Signs: Temp Pulse Pulse Resp BP BP Pulse Ox 08/06/19 11:55 61 12 101/69 98 08/06/19 11:25 36.3 C L 66 12 112/76 100 08/06/19 11:05 65 14 110/75 98 08/06/19 10:55 36.4 C L 85 14 103/72 100 08/06/19 10:45 95 H 15 116/74 100 08/06/19 10:39 36.0 C L 98 H 15 116/76 100 08/06/19 06:37 36.7 C 77 20 127/69 99 Transfer of Care Handoff Completed per policy Notes Mental Status: alert / awake / arousable Patient Amnestic to Procedure: Yes Nausea / Vomiting: adequately controlled Pain: adequately controlled Airway Patency, RR, SpO2: stable & adequate BP & HR: stable & adequate Hydration State: stable & adequate Anesthetic Complications: no major complications apparent
[2019-08-06] MEDS: SODIUM CHLORIDE 0.9% 1000ML 1,000 ML IV SCH ×2 (12:28→22:22)
[2019-08-06] MEDS: ACETAMINOPHEN 500 MG TAB PO SCH ×2 (14:04→21:37)
[2019-08-06] MEDS: CEFAZOLIN 1000MG 1,000 MG/7.5 ML SYR IV SCH ×2 (17:19→23:41)
[2019-08-06] MEDS: FERROUS GLUCONATE 324 MG TAB PO SCH (17:19)
[2019-08-06] MEDS ORDERED: SENNA 8.6 MG TAB PO SCH (21:00)
[2019-08-06] MEDS: DOCUSATE SODIUM 100 MG CAP PO SCH (21:37)
[2019-08-06] MEDS: ASPIRIN 81 MG ECTAB PO SCH (21:37)
[2019-08-07] MEDS: ACETAMINOPHEN 500 MG TAB PO SCH ×2 (05:50→13:12)
[2019-08-07 06:14] LABS: Hematocrit (blood only) 38.3 % (37-47); Hemoglobin 12.2 g/dL (12.0-16.0); Mean Corpuscular Hgb Conc 31.9 g/dL (32-36); Mean Corpuscular Volume 94.3 fL (80-100); Mean Platelet Volume 9.9 fL (7.4-10.4); Platelet Count 190 K/uL (130-400); RDW Coefficient of Variation 13.6 % (11.5-14.5); RDW Standard Deviation 46.7 fL (36.4-46.3); Red Blood Count 4.06 M/uL (4.2-5.4)
[2019-08-07 06:50] LABS: BUN Creatinine Ratio 11.4 (10-20); Creatinine Clr Calc Pharmacy 70.5 ml/min; Est GFR (African American) 100.2; Est GFR (Non-African American) 86.5; Potassium 3.3 mmol/L (3.5-5.1)
--- NOTE | 2019-08-07 08:10 | Orthopedic Progress Note ---
Date of Service August 07, 2019 Assessment & Plan (1) Arthritis of knee, left: Postop day 1 status post left total knee arthroplasty. PT/OT protocols. Weightbearing as tolerated. DVT prophylaxis with aspirin p.o. twice daily, SCDs, KIMBERLEY abenaboris Continue current pain regimen. DC planning-patient is planning for outpatient PT upon discharge. Admission and Anticipated Discharge Date Admission Date: August 06, 2019 Subjective Patient sitting up in chair at the bedside. Awake and alert. No complaints this morning. Pain is controlled. Denies shortness of breath, chest pain, lightheadedness. She is hoping to go home today. Physical Exam Physical Exam: Dressings are clean, dry, and intact. Calves are soft nontender. Neurovascular is intact. Toes are mobile. She has good dorsiflexion plantarflexion of the operative foot. Hemovac drainage was 100 mL from the previous shift. Results & Data ([facility]) Vital Signs (Past 12 Hours) Vital Signs Temp Pulse Pulse Resp BP Pulse Ox 08/07/19 07:13 36.6 C 63 16 106/69 98 08/07/19 02:48 36.5 C 64 16 98/66 L 97 08/06/19 23:17 36.7 C 61 16 106/70 97 Laboratory Results Laboratory Results WBC 7.30 K/uL (4.8-10.8) 08/07/19 06:00 RBC 4.06 M/uL (4.2-5.4) L 08/07/19 06:00 Hgb 12.2 g/dL (12.0-16.0) 08/07/19 06:00 Hct 38.3 % (37-47) 08/07/19 06:00 MCV 94.3 fL (80-100) 08/07/19 06:00 MCH 30.0 pg (25-34) 08/07/19 06:00 MCHC 31.9 g/dL (32-36) L 08/07/19 06:00 RDW Std Deviation 46.7 fL (36.4-46.3) H 08/07/19 06:00 RDW Coeff of Maggy 13.6 % (11.5-14.5) 08/07/19 06:00 Plt Count 190 K/uL (130-400) 08/07/19 06:00 MPV 9.9 fL (7.4-10.4) 08/07/19 06:00 Immature Gran % (Auto) 0.0 % 07/30/19 14:23 Neut % (Auto) 53.8 % 07/30/19 14:23 Lymph % (Auto) 35.3 % 07/30/19 14:23 [place] % (Auto) 7.6 % 07/30/19 14:23 Eos % (Auto) 2.7 % 07/30/19 14:23 Baso % (Auto) 0.6 % 07/30/19 14:23 Immature Gran # (Auto) 0.00 K/uL (0.00-0.02) 07/30/19 14:23 Neut # (Auto) 1.78 K/uL (1.4-6.5) 07/30/19 14:23 Lymph # (Auto) 1.17 K/uL (1.2-3.4) L 07/30/19 14:23 [place] # (Auto) 0.25 K/uL (0.11-0.59) 07/30/19 14:23 Eos # (Auto) 0.09 K/uL (0-0.5) 07/30/19 14:23 Baso # (Auto) 0.02 K/uL (0-0.2) 07/30/19 14:23 PT 10.7 Seconds (9.0-12.0) 07/30/19 14:23 INR 1.0 (0.9-1.1) 07/30/19 14:23 APTT 31.8 Seconds (21.0-31.0) H 07/30/19 14:23 PTT Ratio 1.1 07/30/19 14:23 Sodium 145 mmol/L (136-145) 08/07/19 06:00 Potassium 3.3 mmol/L (3.5-5.1) L 08/07/19 06:00 Chloride 110 mmol/L (98-107) H 08/07/19 06:00 Carbon Dioxide 28 mmol/L (21-32) 08/07/19 06:00 Anion Gap 7.0 (3-11) 08/07/19 06:00 BUN 9 mg/dl (7-18) 08/07/19 06:00 Creatinine 0.76 mg/dl (0.6-1.2) 08/07/19 06:00 Est Cr Clr Drug Dosing 70.5 ml/min 08/07/19 06:00 Est GFR ( Amer) 100.2 08/07/19 06:00 Est GFR (Non-Af Amer) 86.5 08/07/19 06:00 BUN/Creatinine Ratio 11.4 (-20) 08/07/19 06:00 Glucose 114 mg/dl (70-99) H 08/07/19 06:00 Estimat Average Glucose 103 mg/dl 07/30/19 14:23 Hemoglobin A1c 5.2 % (4.5-5.6) 07/30/19 14:23 Calcium 9.0 mg/dl (8.5-10.1) 08/07/19 06:00 Albumin 4.0 gm/dl (3.4-5.0) 07/30/19 14:23 Urine Color Yellow 07/30/19 14:23 Urine Appearance Clear (Clear) 07/30/19 14:23 Urine pH 5.0 (4.5-7.5) 07/30/19 14:23 Ur Specific [place] 1.009 (1.000-1.030) 07/30/19 14:23 Urine Protein Negative (Negative) 07/30/19 14:23 Urine Glucose (UA) Negative (Negative) 07/30/19 14:23 Urine Ketones 2+ (Negative) H 07/30/19 14:23 Urine Blood Negative (Negative) 07/30/19 14:23 Urine Nitrite Negative (Negative) 07/30/19 14:23 Urine Bilirubin Negative (Negative) 07/30/19 14:23 Urine Urobilinogen Negative (Negative) 07/30/19 14:23 Ur Leukocyte Esterase Negative (Negative) 07/30/19 14:23 Blood Type O Positive 07/30/19 14:23 Antibody Screen NEGATIVE 07/30/19 14:23
[2019-08-07] MEDS: ASPIRIN 81 MG ECTAB PO SCH (08:33)
[2019-08-07] MEDS: DOCUSATE SODIUM 100 MG CAP PO SCH (08:34)
[2019-08-07] MEDS ORDERED: MULTIVITAMIN TAB PO SCH (09:00)
[2019-08-07] MEDS: FERROUS GLUCONATE 324 MG TAB PO SCH (09:07)
--- NOTE | 2019-08-10 10:48 | Discharge Summary ---
Date of Service August 10, 2019 Admission HPI Per Admitting Provider Ms Monika Walker is a 58 year old female who is here for a follow up of left knee pain, presents for pre-op evaluation prior to a left total knee replacement at [facility]. she previously had her right knee replaced in 2018 and recovered well. She presents with pain and stiffness in her left knee. she states that the symptoms have been chronic non-traumatic and described as throbbing and aching. Currently the patient states that the symptoms are mild-moderate with occasional worsening. she rates her current pain as 4/10 and worst is 7/10. The symptoms are aggravated by walking standing and using stairs. she has tried po nsaids and tylenol as well without any relief. Admission Exam Per Admitting Provider Physical Exam: ht: 4ft 11in wt: 72.8kg Constitutional: WD/WN, vitals as above no acute distress Respiratory: normal respiratory effort, lungs clear to auscultation no respiratory distress, no labored breathing and does not use accessory muscles Cardiovascular: RRR, no murmur, no edema Gastrointestinal (Abdomen): normal bowel sounds, soft, nontender, no hepatosplenomegaly Musculoskeletal: Knee: + knee abnormal to inspection (left knee- ), + effusion (+1 effusion), + limited ROM of knee (ROM 0/3/110), + knee ROM with crepitation, + joint line tenderness (medial joint line) and + Joselyn's sign positive; no deformity, no skin erythema, no ecchymosis, no valgus laxity, no varus laxity, anterior drawer test negative, Leanna's sign negative and pivot shift test negative Principal Diagnosis Left knee DJD Discharge Exam Patient sitting up in chair at the bedside. Awake and alert. No complaints this morning. Pain is controlled. Denies shortness of breath, chest pain, lightheadedness. She is hoping to go home today. Physical Exam Physical Exam: Dressings are clean, dry, and intact. Calves are soft nontender. Neurovascular is intact. Toes are mobile. She has good dorsiflexion plantarflexion of the operative foot. Hemovac drainage was 100 mL from the previous shift. Results & Data ([facility]) Vital Signs (Past 12 Hours) Vital Signs Temp Pulse Pulse Resp BP Pulse Ox 08/07/19 07:13 36.6 C 63 16 106/69 98 06/18/20 02:48 36.5 C 64 16 98/66 L 97 08/06/19 23:17 36.7 C 61 16 106/70 97 Discharge Data Allergies Allergy/AdvReac Type Severity Reaction Status Date / Time adhesive Allergy Unknown SKIN Verified 08/06/19 06:36 IRRITATION WITH BANDAIDS Sulfa (Sulfonamide Allergy Unknown RAISED Verified 08/06/19 06:36 Antibiotics) RASH HEAD TO TOE, FEVER Consultations 08/06/19 11:36 Consult Case Management - Discharge Planning Routine Procedures Performed Operation Date: 08/06/19 08:20 Actual Procedures p Left Total Knee Arthroplasty(Left) - Dre Gomez DO Ordered Studies 08/06/19 05:00 US - OR guided needle placemen Routine Hospital Course (1) Arthritis of knee, left: Patient was admitted on above-noted date and had the above-noted surgery performed which he tolerated well.Patient sitting up in chair at the bedside. Awake and alert. No complaints this morning. Pain is controlled. Denies shortness of breath, chest pain, lightheadedness. She is hoping to go home today.On her first postoperative day, she was sitting up in her chair at the bedside. She was awake and alert and had no complaints. Pain was controlled. Denies shortness of breath, chest pain, lightheadedness. She was hoping to go home. Dressings are clean dry and intact. Calves are soft nontender. Neurovascular intact. Toes are mobile. She had good dorsiflexion and plantarflexion of the foot on the operative side. Vital signs were stable and her hemoglobin was 12.2. She was started on physical therapy to call and continued on DVT prophylaxis and pain management. She progressed well with her PT and was remaining stable and was felt she be discharged home with outpatient PT plans. Total Time Total Time Spent Total Time Spent (In Minutes): 5 Discharge Plan Discharge Items Patient Disposition: Home - Self-Care Reason For Visit: Unilateral Primary Osteoarthritis, Left Knee Discharge Diagnosis: DJD left knee Activity: Per Instructions section Weightbearing: Left weightbearing Weightbearing Comment: As tolerated with walker Non-emergency contact: Surgeon Call non-emergency contact if: your pain is not controlled, your temperature is above 101.5, your wound has increased redness and your wound has increased drainage Follow-up/Referrals: Soren Franco M.D. [Primary Care Provider] - Diet: Regular Addtl Attending Provider Instructions: ACTIVITY RECOMMENDATIONS: SELF CARE INSTRUCTIONS AFTER TOTAL KNEE REPLACEMENT A. You may need to continue a physical therapy program after discharge from the hospital. There are several options available to you. Your doctor will assist you in selecting the best one for you. 1. An out-patient facility 2 to 3 times a week for therapy or home therapy. 2. Continue working on all exercises taught to you in the hospital. Your goals should be to increase bending of your knee to 90 degrees and beyond and to fully straighten your knee. B. You may progress at your own pace from walking with a walker or crutches to a cane; then to no assistive devices. C. Make walking a part of your daily routine. Be up as much as comfortable with rest periods throughout the day. Rest with leg elevation is very important. Use the ice wrap frequently for the first 3-4 weeks. D. There are no restrictions on activities. You may ride in a car, shop, participate in bread pan greaser and all social activities. E. Wear the long elastic stockings (KIMBERLEY hose) 20 hours a day for 2 weeks after surgery. They can be removed several times a day for laundering and for a bath. F. You may shower, no tub baths until cleared by your doctor. SPECIAL CARE INSTRUCTIONS: VERY IMPORTANT TO READ AND REVIEW A. There are a few signs you need to watch for after you are home. [facility] if you notice any of the followin. Increased severe knee pain. Some pain is expected especially when you exercise. 2. Increased swelling in your leg or knee; pain or swelling of the calf muscle in either lower leg. 3. Any fluid drainage from the incision. 4. Shortness of breath or chest pain. B. Please call [facility] at if you have any concerns or questions about your operation or recovery. The doctor or his nurse will return your call promptly. C. You must take antibiotics before dental work, bladder, bowel or other surgery. Your doctor will provide you with a permanent care to carry describing this precaution. IMPORTANT: * REMEMBER TO TAKE ASPIRIN, 81 MG, TWICE DAILY FOR 4 WEEKS UNLESS OTHERWISE DIRECTED. THIS IS YOUR BLOOD THINNER. * HIGH RISK PATIENTS MAY BE PRESCRIBED A STRONGER BLOOD THINNER. THIS WILL BE PROVIDED AT DISCHARGE. * CALL IF INCREASED PAIN, REDNESS, DRAINAGE OR FEVER GREATER THAT 101. * WEAR KIMBERLEY HOSE 20 HOURS PER DAY FOR 2 WEEKS. * DERMABOND Prineo- This is a mesh tape dressing that is covered with glue. It should remain in place until the incision is properly healed, usually 10-14 days. This dressing is designed to naturally slough off. You may trim the excess mesh tape as it peels off. Incision may be briefly wet in a shower. Dry immediately by blotting with a clean, dry towel. Do not bath or swim until instructed by your doctor. Do not scratch, rub, or pick at the dressing. Do not apply any topical ointments or lotions until dressing is completely removed and/or instructed by your doctor. There may be a small piece of suture material at one end of your incision. Do not pull or trim this. If it is bothersome or catching on clothing, you may cover it with a band-aid. . *Silverlon- This is a large adhesive bandage that contains silver ions. This helps your incision heal by fighting off bacteria and protecting it from the outside environment. You are permitted to shower with this dressing. This will remain on your incision for 7 days and then should be removed. Some visible blood or drainage through the dressing window is normal. If there is significant drainage or leaking noted before the 7 days notify your doctor's office immediately. Once removed, keep incision clean and dry. If there is any drainage or redness noted, please call your surgeon. FOLLOW UP VISIT: If appointment is not already scheduled: Please call [facility] to make a follow-up appointment for 2 weeks after your surgery at . Stand-Alone Forms: [facility] [employer], Opioid Pain Management, Smoking Cessation Medications and DC Order Prescriptions: New sennosides [Senokot] 8.6 mg Tablet 17.2 mg PO HS Qty: 30 RF: 0 aspirin 81 mg Tablet,Delayed Release (Dr/Ec) 81 mg PO BID 30 Days Qty: 60 RF: 0 acetaminophen 500 mg Tablet 1,000 mg PO Q8 14 Days Qty: 84 RF: 0 oxycodone 5 mg Tablet 5 mg PO Q4H MDD 6 PRN (Reason: pain) Qty: 30 RF: 0 No Action No Known Home Medications RF: 0 Discharge Orders: Discharge Order (Routine); Ordered 08/07/19 Ordered By: Herbert Milan/Other Patient Handouts: DVT Post Op Prevention Admission Data Admit Date/Time: 08/06/19 10:43 Attending Provider: Dre Gomez Admit Provider: Dre Gomez Primary Care Provider: Soren Franco Other Interventions: Discharge Summary Assessment (RN) Last Done: 08/07/19 11:39 DC Date/Time DO NOT enter until pt leaves facility: 08/07/19 14:10
== END 2019-08-07 14:10 | disposition home or self-care (01) | DRG 470 ==
LOC: ASU 06:11 → 3E 10:43